=== PATIENT | female | born 1930 | race African-American/Black ===

== ENCOUNTER 2019-01-06 09:48 | Emergency (ER) | payer OTHER ==
[~2019-01-06] VITALS: Ht 157.5 cm; Wt 68.0 kg
[2019-01-06] MEDS ORDERED: NORVASC2.5 M1 (10:11)
[2019-01-06] MEDS ORDERED: TOPROL XL25 MG PO (10:11)
[2019-01-06] MEDS ORDERED: SYNTHROID88 MCG PO (10:11)
[2019-01-06] MEDS ORDERED: SYNTHROID100 MCG PO (10:11)
[2019-01-06] MEDS ORDERED: GABAPENTIN100 MG PO (10:12)
[2019-01-06] MEDS ORDERED: NEURONTIN300 MG PO (10:12)
[2019-01-06] MEDS ORDERED: SIMVASTATIN10 MG PO (10:13)
[2019-01-06] MEDS ORDERED: HUMULIN 70100 UNIT/2 SUBCUTANEO (10:15)
== END 2019-01-06 13:13 | disposition home or self-care (01) ==
LOC: ER 09:48 → EDBD 09:52 → ER 09:52
DX: K29.70 Gastritis, unspecified, without bleeding (principal)